=== PATIENT | male | born 1955 | race Caucasian/White ===

== ENCOUNTER 2017-11-05 06:24 | Day surgery (SDC) | payer BC, SELFPAY ==
[2017-11-05] VITALS (7 sets, daily range): BP systolic 112–136; BP diastolic 69–81; PULSE 53–64; RESP 16–18; TEMP 36.4–36.8; O2SAT 97–100; BMI 35.5
--- NOTE | 2017-11-05 07:51 | PCM.HP.STD ---
Problem List (1) Family history of colorectal cancer Status: Acute (2) Personal history of colonic polyps Status: Acute History of Present Illness Date of Admission: 11/05/17 The patient is a 62 year old M colonoscopy. Patient last had a colonoscopy 3 years ago and was found to have polyps. He also has a brother with colon cancer. Past Medical History Allergies No Known Allergies Allergy (Verified 02/27/17 10:46) Home Medications: Ambulatory Orders Medication Instructions Recorded Lisinopril [Zestril] 20 mg PO DAILY 02/27/17 Ibuprofen [Motrin] 400 mg PO Q4H PRN PRN tab 03/05/17 Surgical History: no surgical history Smoking Status: Former smoker - *Family History Maternal History Items: No pertinent history Sibling History Items: Cancer - Brother with colon cancer Review of Systems Cardiovascular: Denies: Chest Pain, Chest Pressure, Chest Tightness, Palpitations Respiratory: Denies: Cough, Hemoptysis, Shortness of breath at rest, Shortness of breath upon exertion, Wheezing Gastrointestinal: Denies: Abdominal Pain, Constipation, Diarrhea, Hematemesis, Nausea, Melena, Vomiting VTE Information - Inpt Only VTE Present on Admission: No VTE Mechan Device Prophylaxis: None VTE Pharm Prophylaxis ordered?: No Reason prophylaxis not ordered:: Treatment Not Indicated Patient Problems: Active and Suspected Problems Family history of colorectal cancer (Acute) Personal history of colonic polyps (Acute) - Physical Exam Neck: Supple, No JVD Lungs: Clear to auscultation Cardiovascular: Regular rate, Regular Rhythm, No murmurs Abdomen: Bowel Sounds Present, Soft, Non Tender, Non-Distended Vital Signs Temp Pulse Resp BP Pulse Ox 97.5 F L 64 16 136/79 H 100 11/05/17 06:40 11/05/17 06:40 11/05/17 06:40 11/05/17 06:40 11/05/17 06:40 Oxygen Delivery Method Room Air Weight: 269 lb 6.478 oz Body Mass Index (BMI) 35.5 Assessment/Plan All Active Problems Family history of colorectal cancer (Acute) Personal history of colonic polyps (Acute) Appendicitis (Acute) Appendicitis (Acute) I plan is perform a colonoscopy. Risk benefits have been reviewed and the patient agrees to proceed.
--- NOTE | 2017-11-05 07:55 | OP.PCM_ITS ---
Problem List (1) Family history of colorectal cancer Status: Acute (2) Personal history of colonic polyps Status: Acute Report of Operation Date of Procedure: 11/05/17 Pre-Operative Diagnosis: 1. Personal history of colonic polyps. 2. Family history of colon cancer (brother) Post-Operative Diagnosis: Same Surgery/Procedure Performed:: Colonoscopy Type of Anesthesia:: MAC Anesthesiologist: Chip Muniz Description of Procedure: atient was brought into the endoscopy suite. Placed in the left lateral decubitus position. Given graded anesthesia. Colonoscope was inserted into the rectum. The scope was directed through the sigmoid colon, descending colon , transverse colon, ascending colon, to the cecum without difficulty. Operative findings: 1. Cecum: Normal appearance no mass lesions normal ileocecal valve. 2. Ascending colon: Normal appearance no mass lesions. 3. Transverse colon: Normal appearance no mass lesions. 4. Descending colon: Normal appearance no mass lesions. 5. Sigmoid colon: Normal appearance no mass lesions scattered small diverticuli identified. 6. Rectum: Normal appearance no mass lesions minimal internal hemorrhoidal disease identified. No masses in the anus. Scope was withdrawn digital rectal exam was performed showing a smooth prostate with no nodules. Patient will need another colonoscopy in 5 years. - Admit VTE Documentation VTE Present on Admission: No VTE Mechan Device Prophylaxis: None VTE Pharm Prophylaxis ordered?: No Reason prophylaxis not ordered:: Treatment Not Indicated
== END 2017-11-05 08:28 | disposition home or self-care (01) ==
LOC: EN 06:26 → AC 06:29
PROVIDERS: Family Provider Family Medicine; PCP Family Medicine; Visit Provider Surgery
PROC: 0DJD8ZZ Inspection of Lower Intestinal Tract, Via Natural or Artificial Opening Endoscopic (ICD-10-PCS; CPT 45378; principal; 2017-11-05 07:25)
DX: K57.30 Diverticulosis of large intestine without perforation or abscess without bleeding (principal); K64.8 Other hemorrhoids; Z86.010 Personal history of colon polyps; Z80.0 Family history of malignant neoplasm of digestive organs; Z87.891 Personal history of nicotine dependence; I10 Essential (primary) hypertension; Z79.899 Other long term (current) drug therapy
CPT/HCPCS: 45378; J7120; J1610

== ENCOUNTER → 2021-08-22 | Outpatient (CLI) | payer MEDICARE, BC, SELFPAY ==
--- NOTE | 2021-08-22 13:35 | RAD_ITS ---
STUDY: X-RAY - LUMBAR SPINE REASON FOR EXAM: Male, 66 years old. RADICULOPATHY, LUMBER REGION TECHNIQUE: 3 view(s) of the lumbar spine were obtained. COMPARISON: None FINDINGS: Normal lumbar lordosis. There is no substantial scoliosis. There is a normal alignment of the vertebrae. There is multilevel endplate spondylosis of the lumbar vertebrae. There is multi-level degenerative disc disease with multi-level disc space narrowing. There is atherosclerotic calcification of the abdominal aorta without a demonstrated aneurysm. RAD/Lumbar Spine 2 or 3 Views IMPRESSION: Degenerative changes of the spine, as detailed above. Electronically Signed: Guanakito Garner MD at 15:00 EDT ,
--- NOTE | 2021-08-22 13:36 | RAD_ITS ---
STUDY: X-RAY - CERVICAL SPINE REASON FOR EXAM: Male, 66 years old. RADICULOPATHY, LUMBAR REGION TECHNIQUE: 3 view(s) of the cervical spine were obtained. COMPARISON: None FINDINGS: Normal anterior atlantoaxial articulation. Normal odontoid process. There is straightening of the normal cervical lordosis. There is multi-level endplate spondylosis. Normal disc space heights. Normal visualized intervertebral neuroforamina. The soft tissue structures are unremarkable. RAD/Cerv Spine 2 or 3 Views IMPRESSION: Loss of the normal cervical lordosis. Multilevel spondylosis. There is relative preservation of the disc spaces. Electronically Signed: Guanakito Garner MD at 15:00 EDT ,
== END | disposition home or self-care (01) ==
LOC: RAD 13:32
PROVIDERS: PCP Family Medicine; Visit Provider Anesthesiology Pain Medicine
DX: M54.16 Radiculopathy, lumbar region (principal)
CPT/HCPCS: 72040; 72100

== ENCOUNTER → 2021-09-02 | Outpatient (CLI) | payer MEDICARE, BC, SELFPAY ==
--- NOTE | 2021-09-02 10:18 | MRI_ITS ---
EXAM: MR LUMBAR SPINE WITHOUT INTRAVENOUS CONTRAST CLINICAL INDICATION: BACK PAIN TECHNIQUE: Multiplanar and multisequence MR images of the lumbar spine without intravenous contrast. This report was created using DIY report generation technology. COMPARISON: Lumbar radiographs August 22, 2021 FINDINGS: VERTEBRAE: Unremarkable. Vertebral body heights are preserved. Normal vertebral bodies and posterior elements. Normal alignment. No spondylolisthesis. There is preservation of the normal lumbar lordosis. INTERSPACES: Multilevel disc space narrowing most pronounced at the L4-5 level. Modic type II endplate changes are present at L3-4 and L4-5. SPINAL CORD: Unremarkable. Normal position and signal intensity of the conus medullaris. SOFT TISSUES: Unremarkable. DISCS/SPINAL CANAL/NEURAL FORAMINA: L1-2: No disc protrusion. Normal caliber spinal canal and neural foramina. L2-3: No disc protrusion. Facet arthropathy present. Normal caliber spinal canal and neural foramina. L3-4: Mild disc bulging, ligamentous redundancy and facet arthropathy results in mild bilateral neural foraminal narrowing and minimal impression on the thecal sac. L4-5: Right lateral disc protrusion causes moderate narrowing of the right neural foramen. Moderate narrowing of the left neural foramen related to facet joint arthropathy. No significant compression of the spinal canal. L4-5: Mild disc bulging and moderate facet arthropathy results in moderate narrowing of the neural foramina bilaterally. No impingement on the thecal sac. L5-S1: Unremarkable. Normal disc height and morphology. Normal spinal canal and lateral recesses. Normal neuroforamina. MRI/Spine Lumbar (Routine) IMPRESSION: 1. Multilevel disc degeneration facet arthropathy without significant spinal stenosis. 2. Multilevel neural foraminal narrowing as described. Electronically Signed: Tyrell Gauthier MD at 13:36 EDT ,
== END | disposition home or self-care (01) ==
LOC: MRI 10:07
PROVIDERS: PCP Family Medicine; Visit Provider Anesthesiology Pain Medicine
DX: M54.16 Radiculopathy, lumbar region (principal)
CPT/HCPCS: 72148

== ENCOUNTER → 2021-10-06 | Outpatient (CLI) | payer MEDICARE, BC, SELFPAY ==
--- NOTE | 2021-10-06 11:09 | MRI_ITS ---
STUDY: MRI THORACIC SPINE WITHOUT CONTRAST REASON FOR EXAM: Male, 66 years old. pain R mid back TECHNIQUE: Standardized fat and water weighted pulse sequences were obtained in the sagittal and axial planes. COMPARISON: None. FINDINGS: Normal kyphosis of the thoracic spine. There is no substantial scoliosis. T1-2, T2-3, T3-4, T4-5, T5-6, T6-7, T7-8, T8-9, T9-10, T10-11, T11-12: Disc desiccation with mild disc space narrowing and endplate spurring. No posterior disc herniations or bulges or extrusions. No demonstrated cord compression. No marrow edema or fracture or compression deformity is seen. A few benign fatty hemangiomas are present in several vertebral bodies. Normal central canal and intervertebral neural foramina at the corresponding levels. Normal visualized thoracic cord. Normal conus medullaris that terminates at the T12-L1 level.. The soft tissue structures are unremarkable. MRI/Spine Thoracic (Routine) IMPRESSION: Mild multilevel degenerative changes of the thoracic spine. Electronically Signed: Marques Delgado MD at 14:43 EDT ,
== END | disposition home or self-care (01) ==
LOC: MRI 11:09
PROVIDERS: PCP Family Medicine; Referring Provider Orthopaedic Surgery; Visit Provider Orthopaedic Surgery
DX: M51.36 Other intervertebral disc degeneration, lumbar region (principal)
CPT/HCPCS: 72146